=== PATIENT | male | born 1985 | race Caucasian/White ===

== ENCOUNTER 2023-12-11 19:33 | Emergency (ER) | payer OTHER, SELFPAY ==
[2023-12-11 19:33] VITALS: BP 137/93; PULSE 99; RESP 16; TEMP 36.6; O2SAT 98; BMI 25.3
[2023-12-11 19:36] VITALS: BP 129/84; PULSE 91; RESP 16; O2SAT 99
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
--- NOTE | 2023-12-11 20:15 | RAD_ITS ---
EXAM: XR RIGHT SHOULDER COMPLETE, 2 OR MORE VIEWS CLINICAL INDICATION: Injury/Pain TECHNIQUE: Two or more views of the right shoulder. COMPARISON: No relevant prior studies available. FINDINGS: BONES/JOINTS: Old healed right clavicle fracture. Preservation of the joint space. No sclerotic or destructive changes observed. SOFT TISSUES: Unremarkable. No soft tissue swelling or gas. No radiopaque foreign body. RAD/Shoulder min 2 Views IMPRESSION: No acute findings in the right shoulder. Electronically Signed: Nick Stephen MD at 20:56 EDT ,
--- NOTE | 2023-12-11 20:15 | RAD_ITS ---
EXAM: XR RIGHT RIBS AND AP CHEST, 3 OR MORE VIEWS CLINICAL INDICATION: Trauma TECHNIQUE: Frontal and oblique views of the right ribs and frontal view of the chest. COMPARISON: No relevant prior studies available. FINDINGS: LUNGS AND PLEURAL SPACES: Unremarkable. No consolidation or edema. No pneumothorax. No effusion. HEART: Unremarkable. Cardiac silhouette not enlarged. MEDIASTINUM: Central airways and mediastinal contour are unremarkable. BONES/JOINTS: Unremarkable. No evidence of displaced rib fractures. RAD/Ribs Uni Min 3V w/PA Chest IMPRESSION: Negative chest and right ribs series. Electronically Signed: Nick Stephen MD at 20:55 EDT Reading Location ID and State: [facility] / [place] , Service support ,
--- NOTE | 2023-12-11 20:15 | RAD_ITS ---
EXAM: XR RIGHT CLAVICLE COMPLETE, 2 OR MORE VIEWS CLINICAL INDICATION: Injury/Pain TECHNIQUE: Frontal and lordotic views of the right clavicle. COMPARISON: No relevant prior studies available. FINDINGS: BONES/JOINTS: Old healed right clavicle fracture. Preservation of the joint space. No sclerotic or destructive changes observed. SOFT TISSUES: Unremarkable. No soft tissue swelling or gas. No radiopaque foreign body. RAD/Clavicle IMPRESSION: Old healed right clavicle fracture. Electronically Signed: Nick Stephen MD at 20:55 EDT ,
--- OUTSIDE RECORDS SUMMARY | 2023-12-11 20:25 | XMS RPT_ITS | CCD ---
Author Organization [facility] Care Team Providers Care Proofer Apprentice Name Role Phone Unavailable Primary Care Provider Unavailgirish e KAYLAH GREGORY Referring Unavailable Problems Problem Classification Problem Date Documented Da te Episodic/Chronic Administrative/social admission (5 sources) Patient encounter status; Translations: [Encounter for pre-employment examination] Onset: 05-09-2023 05-09-2023 Episodic Results Test Name Value Interpretation Reference Range Facil ity XR Chest Single viewon 05-11 No radiographic evidence for pneumoconiosis. Please see the attached B reader form. This radiologist is a [facility] certified B reader. Report Dictated on Electronically Signed By: Lee Gallo MD Electronically Signed Date/Time: 05/12/2023 7:42 AM EDT [employer] [facility] Patient Name: JAZZMINE BACA : 1985 Exam Date/Time: 05/09/2023 10:32 Procedure: XR CHEST 1 VIEW Ordering Provider: GREGORY MICHAEL Reason For Exam: Z02.1 CHEST - B READ: CLINICAL INDICATION: Evaluation for pneumoconiosis TECHNIQUE: PA COMPARISON: None FINDINGS: The heart and mediastinum are normal. The lungs demonstrate no consolidation or atelectasis. No abnormal reticular interstitial or nodular opacities are identified. There is no evidence for calcified or noncalcified pleural plaque. The costophrenic angles are sharp. The osseous structures are unremarkable. [facility] Lee Gallo MD - 05/12/2023 Patient Name: JAZZMINE BACA : 1985 Exam Date/Time: 05/09/2023 10:32 Procedure: XR CHEST 1 VIEW Ordering Provider: GREGORY MICHAEL Reason For Exam: Z02.1 CHEST - B READ: CLINICAL INDICATION: Evaluation for pneumoconiosis TECHNIQUE: PA COMPARISON: None FINDINGS: The heart and mediastinum are normal. The lungs demonstrate no consolidation or atelectasis. No abnormal reticular interstitial or nodular opacities are identified. There is no evidence for calcified or noncalcified pleural plaque. The costophrenic angles are sharp. The osseous structures are unremarkable. IMPRESSION: No radiographic evidence for pneumoconiosis. Please see the attached B reader form. This radiologist is a [facility] certified B reader. Report Dictated on Electronically Signed By: Lee Gallo MD Electronically Signed Date/Time: 05/12/2023 7:42 AM EDT [facility] XR Chest Single viewOrdered By: Lee Gallo on 05-12-2023 [facility] Work Phone: XR Chest Single viewon 05-08 Radiology Study observation (narrative) [facility] 36on 11-08-2022 36 S: Patient spoke wit h [facility] nurse regarding cold symptoms B: Onset of symptoms/concern 3 weeks. A: Calls with concern of cough for 3 weeks, that is productive of green mucus, also states diarrhea off and on for 4-6 days, and has wheezing and states shortness of breath at times with activity. Able to speak in complete sentences without audible wheezing or distress noted. Has tried multiple OTC medications with no relief. Is taking liquids well and urinating normal amounts, normal color. Denies fever, dizziness, chest pain. R: Insurance verified. Scheduled new patient appointment with Dr. Marie tomorrow at 2:20 PM. Given practice address and direct phone. Advised to arrive 15 minutes early, bring ID and insurance cards and list of current medications. Patient understands care advice. No further needs at this time. Patient instructed to call back with new or worsening symptoms. Reason for Disposition MILD difficulty breathing (e.g., minimal/no SOB at rest, SOB with walking, pulse <100) and still present when not coughing Protocols used: [id number] [facility] Encounters Encounter Date Encounter Type Care Provider Facility Start: 05-09-2023 End: 05-10-2023 ambulatory [facility] Start: 05-09-2023 End: 08-08-2023 Subsequent hospital visit by physician [facility] Ed Xr Exam Room [facility] Radiology Comment on above: Encounter for pre-em ployment examination Encounter for pre-em ployment examination (Primary Dx) Start: 11-08-2022 [facility] Start: 11-08-2022 Patient encounter procedure Jessenia Daniel RN [facility] Clinical Communication Plan of Treatment Date Care Activity Detail Author Start: 2043 RSV Immunization age d 60 or older (1 - 1-dose 60+ series) RSV Immunization aged 60 or older (1 - 1-dose 60+ series) [facility] Start: 05-28-2033 Zoster Vaccines (1 of 2) Zoster Vacc max (1 of 2) [facility] Start: 10-16-2023 Influenza vaccination Influenz a Vaccine (Season Ended) [facility] Start: 10-15-2022 COVID-19 Vaccine ( season) COVID-19 Vaccine ( season) [facility] Start: 10-15-2022 Influenza vaccination Influenza Vacc ine (#1) [facility] Start: 05-28-2002 DTaP/Tdap/Td Vaccine s (1 - Tdap) DTaP/Tdap/Td Vaccines (1 - Tdap) [facility] Start: 05-28-2002 Hepatitis B Vaccines (1 of 3 - 19+ 3-dose series) Hepatitis B Vaccines (1 of 3 - 19+ 3-dose series) [facility] Start: 05-28-2001 Hepatitis C screening Hepatitis C Sc reening [facility] Start: 05-28-1996 Varicella vaccination Varicell a Vaccines (1 of 2 - 13+ 2-dose series) [facility] Start: 1995 Depression Screening Depression Scre ening [facility] Start: 05-28-1984 MMR Vaccines (1 of 1 - Standard series) MMR Vaccines (1 of 1 - Standard series) [facility] Start: 05-28-1984 Varicella vaccination Varicell a Vaccines (1 of 2 - 2-dose childhood series) [facility] Start: 1983 COVID-19 Vaccine (#1) COVID-19 Vacci ne (#1) [facility] Start: 1985 Hepatitis B Vaccines (1 of 3 - 3-dose series) Hepatitis B Vaccines (1 of 3 - 3-dose series) [facility] Start: 1985 HIV screening HIV Screening [facility] Start: 1985 Lipid panel Lipid Panel [facility] OUTSIDE PROCEDURE SCAN OUTSIDE P ROCEDURE SCAN Procedures Ordered: 05/09/2023 [facility] Comment on above: Ordered: 05/09/2023 End: 05-09-2023 XR Chest Single view [facility] Work Phone: Comment on above: Once for 1 Occurrenc es starting 05/09/2023 until 05/09/2023 Payers Date Payer Category Payer Unknown CORPORATE ACCOUN T [facility] [employer] [id number] 2023-Present ATTN [employer] [address] [address] Other [id number] 2023 Unknown [id number] Social History Date Type Detail Facility Tobacco smoking stat [facility] Tobacco smoking consumption unknown [facility] Start: 1985 Sex Assigned At Not on file S [facility] Gender identity Not on file [facility] Telephone encounter Note 11-08-2022 Telephone Encounter - Jessenia Daniel RN - 11/08/2022 2:41 PM EDT Note Date & Type Note Facility 11-08-2022 Telephone encounter Note Form atting of this note might be different from the original. S: Patient spoke with [facility] nurse regarding cold symptoms B: Onset of symptoms/concern 3 weeks. A: Calls with concern of cough for 3 weeks, that is productive of green mucus, also states diarrhea off and on for 4-6 days, and has wheezing and states shortness of breath at times with activity. Able to speak in complete sentences without audible wheezing or distress noted. Has tried multiple OTC medications with no relief. Is taking liquids well and urinating normal amounts, normal color. Denies fever, dizziness, chest pain. R: Insurance verified. Scheduled new patient appointment with Dr. Marie tomorrow at 2:20 PM. Given practice address and direct phone. Advised to arrive 15 minutes early, bring ID and insurance cards and list of current medications. Patient understands care advice. No further needs at this time. Patient instructed to call back with new or worsening symptoms. Reason for Disposition MILD difficulty breathing (e.g., minimal/no SOB at rest, SOB with walking, pulse <100) and still present when not coughing Protocols used: [id number] [facility] Note 11-08-2022 Telephone Encounter - Jessenia Daniel RN - 11/08/2022 2:41 PM EDT Note Date & Type Note Facility 11-08-2022 Miscellaneous Notes Formattin g of this note might be different from the original. S: Patient spoke with [facility] nurse regarding cold symptoms B: Onset of symptoms/concern 3 weeks. A: Calls with concern of cough for 3 weeks, that is productive of green mucus, also states diarrhea off and on for 4-6 days, and has wheezing and states shortness of breath at times with activity. Able to speak in complete sentences without audible wheezing or distress noted. Has tried multiple OTC medications with no relief. Is taking liquids well and urinating normal amounts, normal color. Denies fever, dizziness, chest pain. R: Insurance verified. Scheduled new patient appointment with Dr. Marie tomorrow at 2:20 PM. Given practice address and direct phone. Advised to arrive 15 minutes early, bring ID and insurance cards and list of current medications. Patient understands care advice. No further needs at this time. Patient instructed to call back with new or worsening symptoms. Reason for Disposition MILD difficulty breathing (e.g., minimal/no SOB at rest, SOB with walking, pulse <100) and still present when not coughing Protocols used: [id number] documented in this encounter [facility] Evaluation note Note Date & Type Note Facility Evaluation note Diagnosis Encounter for pre-employment examination documented in this encounter [facility] Evaluation note Note Date & Type Note Facility Evaluation note Diagnosis Encounter for pre-employment examination- Primary Encounter for pre-employment examination documented in this encounter [facility] Summary Purpose Family History No Family History Records Found Advance Directives No Advanced Directives Records Found Additional Source Comments Reason for Visit (unrecogniz ed section and content) Reason Onset Date Comments Cough 11/08/2022 (unrecognized sect ion and content) No Status Records Found INFORMATION SOURCE (unrecogn ized section and content) DATE CREATED AUTHOR 05/13/2023 [facility] FOR RECORDS PERTAINING TO PATIENTS WHO ARE OR HAVE BEEN ENROLLED IN A CHEMICAL DEPENDENCY/SUBSTANCEABUSE PROGRAM, SOME INFORMATION MAY BE OMITTED. This clinical summary was aggregated from multiple sources. Caution should be exercised in using it in the provision of clinical care. This summary normalizes information from multiple sources, and as a consequence, information in this document may materially change the coding, format and clinical context of patient data. In addition, data may be omitted in some cases. CLINICAL DECISIONS SHOULD BE BASED ON THE PRIMARY CLINICAL RECORDS. [employer] [facility]. provides no warranty or guarantee of the accuracy or completeness of information in this document.
[2023-12-11 20:36] VITALS: BP 125/74; PULSE 86; RESP 16; O2SAT 98
[2023-12-11] MEDS: HYDROcodone Bitartrate/Apap 5/325 Tablet PO (20:43)
== END 2023-12-11 21:31 | disposition home or self-care (01) ==
PROVIDERS: Emergency Provider Emergency Medicine; Visit Provider Emergency Medicine
DX: S20.20XA Contusion of thorax, unspecified, initial encounter (principal); Z87.891 Personal history of nicotine dependence; S40.011A Contusion of right shoulder, initial encounter; V86.05XA Driver of 3- or 4- wheeled all-terrain vehicle (ATV) injured in traffic accident, initial encounter
CPT/HCPCS: 71101; 73000; 73030; 99282